=== PATIENT | male | born 1990 | race African-American/Black ===

== ENCOUNTER 2023-10-29 00:14 | Emergency (ER) | payer OTHER ==
[~2023-10-29] VITALS: Ht 180.3 cm; Wt 93.0 kg
[2023-10-29 00:15] VITALS: TEMP 97.2
[2023-10-29 01:46] LABS: BASO % 0.8 % (0.0-1.0); EOS # 0.1 10^3/uL (0.0-0.5); EOS % 1.6 % (0.0-3.0); HEMATOCRIT 46.8 % (42.0-52.0); HEMOGLOBIN 15.9 g/dl (13.5-17.5); LYMPH # 2.9 10^3/uL (1.5-5.0); LYMPH % 56.6 % (24.0-44.0); MEAN CORPUSCULAR HEMOGLOBIN 30.4 pg (27.0-33.0); MEAN CORPUSCULAR VOLUME 89.5 fl (80.0-96.0); MONO # 0.5 10^3/uL (0.0-0.8); MONO % 8.8 % (2.0-8.0); NEUTROPHILS # 1.6 10^3/uL (1.5-8.5); PLATELET COUNT, AUTOMATED 256 10^3/uL (150-450); RED BLOOD COUNT 5.23 10^6/uL (4.30-6.10); WHITE BLOOD COUNT 5.1 10^3/uL (4.0-10.0)
[2023-10-29] MEDS: NS 1,000 ML IV ONE ×2 (02:33→04:29)
[2023-10-29 03:17] LABS: RSV AMPLIFICATION NEGATIVE (NEGATIVE)
[2023-10-29 03:21] LABS: ALKALINE PHOSPHATASE 55 U/L (46-116); ALT/SGPT 37 U/L (7.0-40); AST/SGOT 17 U/L (<34); BILIRUBIN,TOTAL 0.5 MG/DL (0.3-1.2); BLOOD UREA NITROGEN 14 MG/DL (9-23); CALCIUM LEVEL 9.4 MG/DL (8.5-10.1); CARBON DIOXIDE LEVEL 29 MMOL/L (20-31); CHLORIDE LEVEL 105 MMOL/L (98-107); CREATININE FOR GFR 1.02 MG/DL (0.70-1.30); GLOMERULAR FILTRATION RATE > 60.0 (>60); GLUCOSE, FASTING 83 MG/DL (60-100); POTASSIUM SERUM 4.4 MMOL/L (3.5-5.1); SODIUM LEVEL 139 MMOL/L (136-145); TOTAL PROTEIN 7.4 G/DL (5.7-8.2)
[2023-10-29 03:26] LABS: CK-MB VALUE MASS < 1.0 NG/ML (<3.6)
[2023-10-29 03:28] LABS: CPK CREATINE PHOSPHOKINASE 336 U/L (46-171); MB/CK RELATIVE INDEX 0.29 (< OR =4)
[2023-10-29 03:30] LABS: THYROID STIMULATING HORMONE 5.038 uIU/ML (0.55-4.78)
[2023-10-29 04:14] VITALS: BP 119/66; O2SAT 96
[2023-10-29 04:52] LABS: PHOSPHORUS LEVEL 4.7 MG/DL (2.5-4.9)
[2023-10-29] MEDS ORDERED: HOLTER MONITOR XX (05:01)
== END 2023-10-29 05:40 | disposition home or self-care (01) ==
LOC: M ED 00:14
DX: R00.2 Palpitations (principal); R42 Dizziness and giddiness; Z88.8 Allergy status to other drugs, medicaments and biological substances

== ENCOUNTER → 2023-10-29 | Outpatient (CLI) | payer OTHER ==
[~2023-10-29] MED LIST: HOLTER MONITOR XX
== END ==
LOC: M EKG 14:44
PROVIDERS: ATTEND Emergency Medicine
DX: R00.2 Palpitations (principal); R00.1 Bradycardia, unspecified

== ENCOUNTER → 2025-09-15 | Outpatient (CLI) | payer OTHER | LOC: M PLAIMG 09:26 | DX: M70.72 Other bursitis of hip, left hip (principal) ==